=== PATIENT | female | born 1985 | race African-American/Black ===

== ENCOUNTER 2024-02-15 17:39 | Emergency (ER) | payer MEDICAID ==
[~2024-02-15] VITALS: Ht 152.4 cm; Wt 131.2 kg
[~2024-02-15 17:39] MED LIST: ALDACTONE 25MG25 M1 PO; CEFTIN 250250 MG/TAB PO; CEPHALEXIN500 M1 PO; COZAAR 25MG25 MG/TAB PO; DOXYCYCLINE 10100 MG PO; FLAGYL500 MG PO; JARDIANCE10 PO; K-DUR 10 MEQ T10 MEQ PO; LASIX 40MG TABL40 MG PO; MACROBID 1100 MG/CAP PO; MOTRIN 600600 MG/TAB PO; NO HOME MEDICATIONS; PERCOCET 325 MG1 TA2 PO; PREDNISONE50 MG PO; PRENATAL1 TA1; PROAIR HFA0.09 MG/AC IH; TOPROL XL 25MG25 MG PO; TRANDATE 100MG100 MG PO; TUMS500 MG; ULTRAM 50MG TAB50 MG PO
[2024-02-15 17:40] VITALS: TEMP 101
[2024-02-15] MEDS ORDERED: Albuterol/Ipratropium 3 MG-0.5 MG/3 ML Neb Soln IH ONE (17:45)
[2024-02-15 17:56] LABS: HEMATOCRIT 43.8 % (37.0-47.0); HEMOGLOBIN 14.4 g/dl (12.5-16.0); MEAN CELL VOLUME 96 fl (80.0-100.0); MEAN CORPUSCULAR HEMOGLOBIN 32 pg (27-31); MEAN CORPUSCULAR HGB CONC 33 g/dl (33.0-37.0); MEAN PLATELET VOLUME 12.7 fl (7.4-10.4); PLATELET COUNT 127 K/mm3 (130-400); RED BLOOD COUNT 4.57 M/mm3 (4.10-5.30); REDCELL DISTRIBUTION WIDTH-CV 13.3 % (11.5-14.5)
[2024-02-15] MEDS ORDERED: Acetaminophen 500 MG TAB PO ONE (18:00)
[2024-02-15] MEDS ORDERED: hydrALAZINE 20 MG/ML 1 ML VIAL IV ONE (18:00)
[2024-02-15 18:14] LABS: EOSINOPHIL 1 % (0-4); LYMPHOCYTE 6 % (20.0-51.0); NEUTROPHILS 88 % (42.0-75.2); TOXIC GRANULATION PRESENT
[2024-02-15 18:18] LABS: ALBUMIN 3.7 g/dL (3.5-5.0); BILIRUBIN,TOTAL 0.7 mg/dL (0.2-1.2); CALCIUM 8.9 mg/dL (8.4-10.2); CREATININE, serum 0.75 mg/dL (0.57-1.11); MAGNESIUM 1.6 mg/dL (1.6-2.6); POTASSIUM 4.1 mEq/L (3.5-4.5)
[2024-02-15 18:24] LABS: TROPONIN-I 0.023 ng/mL (0.00-0.033)
[2024-02-15] MEDS ORDERED: Furosemide 40 MG/4 ML VIAL IV ONE (18:30)
[2024-02-15 18:33] LABS: COLLECTION METHOD CLEAN CATCH
[2024-02-15 18:43] LABS: URINE APPEARANCE CLOUDY (CLEAR/HAZY); URINE BLOOD NEGATIVE (NEGATIVE); URINE COLOR YELLOW (YELLOW); URINE GLUCOSE NEGATIVE (NEGATIVE); URINE KETONE NEGATIVE (NEGATIVE); URINE NITRATE NEGATIVE (NEGATIVE); URINE PROTEIN(semi-quant) 1+ (NEGATIVE)
[2024-02-15] MEDS ORDERED: fentaNYL 50 MCG/ML 2 ML VIAL IV ONE (19:00)
[2024-02-15 19:13] VITALS: BP 178/146; PULSE 137
== END 2024-02-15 19:13 | disposition left against medical advice (07) ==
LOC: COL.ER 17:39
PROVIDERS: Emergency Medicine
DX: R06.03 Acute respiratory distress (principal); R50.9 Fever, unspecified; R00.0 Tachycardia, unspecified; M79.89 Other specified soft tissue disorders; F17.200 Nicotine dependence, unspecified, uncomplicated
CPT/HCPCS: J0360; J1940

== ENCOUNTER 2024-05-18 23:19 | Inpatient (IN) | payer MEDICAID ==
[~2024-05-18] VITALS: Ht 152.4 cm; Wt 134.7 kg
[2024-05-18] MEDS ORDERED: Morphine 4 MG/ML VIAL IV ONE (23:30)
[2024-05-18 23:40] LABS: HEMATOCRIT 40.3 % (37.0-47.0); HEMOGLOBIN 13.5 g/dl (12.5-16.0); MEAN CELL VOLUME 97 fl (80.0-100.0); MEAN CORPUSCULAR HEMOGLOBIN 32 pg (27-31); MEAN CORPUSCULAR HGB CONC 34 g/dl (33.0-37.0); PLATELET COUNT 131 K/mm3 (130-400); RED BLOOD COUNT 4.17 M/mm3 (4.10-5.30)
[2024-05-18] MEDS ORDERED: Furosemide 40 MG/4 ML VIAL IV ONE (23:45)
[2024-05-18 23:59] LABS: ALBUMIN 3.4 g/dL (3.5-5.0); BILIRUBIN,TOTAL 0.4 mg/dL (0.2-1.2); CALCIUM 8.8 mg/dL (8.4-10.2); CREATININE, serum 0.66 mg/dL (0.57-1.11); MAGNESIUM 1.7 mg/dL (1.6-2.6); POTASSIUM 3.7 mEq/L (3.5-4.5); TOTAL PROTEIN 6.9 g/dl (6.2-8.1)
[2024-05-19] VITALS (13 sets, daily range): BP systolic 136–191; BP diastolic 85–136; PULSE 85–123; TEMP 97.6–99.6
[2024-05-19 00:05] LABS: TROPONIN-I 0.03 ng/mL (0.00-0.033)
[2024-05-19 00:11] LABS: BAND 6 % (0-10); BASOPHIL 1 % (0-2); LYMPHOCYTE 13 % (20.0-51.0); NEUTROPHILS 76 % (42.0-75.2)
[2024-05-19 00:16] LABS: COLLECTION METHOD CLEAN CATCH
[2024-05-19 00:59] LABS: PH 7.5 (5.0-8.5); URINE APPEARANCE CLEAR (CLEAR/HAZY); URINE BLOOD TRACE (NEGATIVE); URINE COLOR YELLOW (YELLOW); URINE GLUCOSE NEGATIVE (NEGATIVE); URINE KETONE NEGATIVE (NEGATIVE); URINE NITRATE POSITIVE (NEGATIVE); URINE PROTEIN(semi-quant) NEGATIVE (NEGATIVE)
[2024-05-19] MEDS ORDERED: cefTRIAXone 2 G in Water For Injection,Sterile 20 ML IV ONE (01:30)
[2024-05-19] MEDS ORDERED: ZOLOFT 100MG100 MG PO (02:41)
[2024-05-19] MEDS ORDERED: SINEMET 10/101 UDTAB PO (02:42)
[2024-05-19] MEDS ORDERED: NORCO 325 MG-51 TAB PO (02:54)
[2024-05-19] MEDS ORDERED: COREG12.5 MG PO (02:55)
[2024-05-19] MEDS ORDERED: ABILIFY 10MG TA10 MG PO (02:55)
[2024-05-19] MEDS ORDERED: DESYREL 100MG100 MG PO (02:56)
[2024-05-19 03:05] LABS: ARTERIAL BLD GAS O2 SATURATION 98.2 % (92-100); ARTERIAL BLD GAS TCO2 CT 24.9; ARTERIAL BLOOD GAS BASE EXCESS -1.6 (-2-2); ARTERIAL BLOOD GAS HCO3 23.6 meq/L (22-26); ARTERIAL BLOOD GAS PCO2 41.6 mmHg (35-45); ARTERIAL BLOOD GAS PO2 114.1 mmHg (80-100); ARTERIAL BLOOD GAS pH 7.37 (7.35-7.45)
[2024-05-19] MEDS ORDERED: Metoprolol Tartrate 5 MG/5 ML VIAL IV ONE (04:15)
[2024-05-19] MEDS ORDERED: Iohexol 350 - 100 ML VIAL IV ONE (04:17)
--- NOTE | 2024-05-19 04:19 | NUR ---
Patient arrived to room 351 at this time. Patient's BP is 191/136 upon arrival. Hospitalist COLETTE Olsen had requested to be notified of BP upon arrival for prevoius BP of 186/92. Recieved orders to give 5mg IV metoprolol and apply 1in of nitro paste. Hospitalist kept update with blood pressuers. States she is starting to have some more chest pain. Assessment and med rec complete. IV in right AC flushes easily without complications. Oriented patient to room, call light, bathroom, and phone. Call light and personal items in reach. Bed in low position.
[2024-05-19] MEDS ORDERED: Nitroglycerin 2% Topical Oint 1 GM UD TD SCH (04:30)
--- NOTE | 2024-05-19 04:40 | NUR ---
RT IN TO ASSIST PT TO ROOM AND CT. PT ON 5L NC. WHEN PT ARRIVED TO ROOM PT PLACED BACK ON BIPAP.
[2024-05-19] MEDS ORDERED: Morphine 4 MG/ML VIAL IV ONE (04:45)
[2024-05-19] MEDS ORDERED: Albuterol/Ipratropium 3 MG-0.5 MG/3 ML Neb Soln IH PRN (05:00)
[2024-05-19] MEDS ORDERED: Azithromycin 500 MG in NS 250 ML IV SCH (05:00)
[2024-05-19] MEDS ORDERED: dexAMETHasone 10 MG/ML VIAL IV SCH (05:00)
[2024-05-19 05:44] LABS: PHOSPHOROUS 3.6 mg/dL (2.3-4.7)
[2024-05-19 05:46] LABS: CALCIUM 8.6 mg/dL (8.4-10.2); CREATININE, serum 0.7 mg/dL (0.57-1.11); POTASSIUM 3.7 mEq/L (3.5-4.5)
[2024-05-19 06:07] LABS: THYROID STIMULATING HORMONE 1.175 uIU/mL (0.350-4.940); TROPONIN-I 0.017 ng/mL (0.00-0.033)
[2024-05-19] MEDS ORDERED: Albuterol/Ipratropium 3 MG-0.5 MG/3 ML Neb Soln IH SCH (08:00)
[2024-05-19] MEDS ORDERED: Carvedilol 6.25 MG TAB PO SCH (08:00)
--- NOTE | 2024-05-19 08:30 | NUR ---
PATIENT ALERT AND ORIENTED X4. DENIES PAIN AT THIS TIME. PATIENT ON 5L 02/NC. TELEMETRY INPLACE. PATIENT HAS BILATERAL SWELLING, THE LEFT LEG MORE SWOLLEN THAN THE RIGHT. PATIENT LEFT AC D/C/I FLUSHING WELL. PATIENT SHIFT ASSESSMENT COMPLETED. CALL LIGHT WITHIN REACH. BED AT LOWEST POSITION.
[2024-05-19] MEDS ORDERED: Sertraline 100 MG TAB PO SCH (09:00)
[2024-05-19] MEDS ORDERED: ARIPiprazole 10 MG TAB PO SCH (09:00)
[2024-05-19] MEDS ORDERED: Furosemide 40 MG/4 ML VIAL IV SCH (09:00)
[2024-05-19] MEDS ORDERED: Acetaminophen 500 MG TAB PO PRN (11:30)
--- NOTE | 2024-05-19 12:44 | NUR ---
Data: Patient declined spiritual care visit offered during Manager Er rounds. The knock on the door had awakened when Manager Er knocked on the door. Manager Er apologized for waking Patient. Assessment: None. Patient declined. Plan of Care: Chaplains will remain available as needed/requested while Patient is admitted to this hospital.
--- NOTE | 2024-05-19 14:40 | NUR ---
PATIENT GALAN CATHETER LEAKING AND NO LONGER DRAINING PROPERLY. HOSPITALIST JONN WAS NOTIFIED.HOSPITALIST ORDER TO REMOVE GALAN CATHETER AND DISCONTINUE GALAN ORDER. PATIENT VOIDING IN HAT TO MONITOR I&O. CALL LIGHT WITHIN REACH. BED AT LOWEST POSITION.
[2024-05-19] MEDS ORDERED: traZODone 100 MG TAB PO SCH (21:00)
[2024-05-20] VITALS: BP_SYST 149
[2024-05-20] MEDS ORDERED: cefTRIAXone 2 G in Water For Injection,Sterile 20 ML IV SCH (02:00)
--- NOTE | 2024-05-20 02:49 | NUR ---
RT IN TO GIVE PT BREATHING TX. RN CALLED STATING PT WANTED A BREAK FROM THE BIPAP. TX GIVEN, PT STATING SHE DOES NOT WANT TO GO ON THE BIPAP RIGHT NOW. O2 REDUCED FROM 5L TO 4L VIA NC, PT SATTING 93%.
[2024-05-20 03:35] VITALS: BP 148/90; PULSE 84; TEMP 98.3
--- NOTE | 2024-05-20 05:42 | NUR ---
EKG PERFORMED. PT REFUSING BIPAP.
--- NOTE | 2024-05-20 07:50 | NUR ---
PATIENT ALERT AND ORIENTED X4. DENIES PAIN,REPORTS A HEADACHE OF 4/10. PATIENT ON 5L 02/. TELEMETRY INPLACE. PATIENT ON FLUID RESTRICTION. DENIES SOA AT THIS TIME OR CHEST PAIN. SHIFT ASSESSMENT COMPLETED. CALL LIGHT WITHIN REACH. BED AT LOWEST POSITION.
[2024-05-20 08:05] VITALS: BP 170/105; PULSE 89; TEMP 98.7
[2024-05-20 09:37] LABS: HEMATOCRIT 38.7 % (37.0-47.0); HEMOGLOBIN 13.4 g/dl (12.5-16.0); MEAN CELL VOLUME 95 fl (80.0-100.0); MEAN CORPUSCULAR HEMOGLOBIN 33 pg (27-31); MEAN CORPUSCULAR HGB CONC 35 g/dl (33.0-37.0); MEAN PLATELET VOLUME 12.5 fl (7.4-10.4); PLATELET COUNT 119 K/mm3 (130-400); RED BLOOD COUNT 4.06 M/mm3 (4.10-5.30)
[2024-05-20 09:57] LABS: CREATININE, serum 0.8 mg/dL (0.57-1.11); POTASSIUM 3.5 mEq/L (3.5-4.5)
[2024-05-20] MEDS ORDERED: PREDNISONE20 MG PO (09:59)
[2024-05-20] MEDS ORDERED: AMOXICILLIN 8751 TAB PO (10:01)
[2024-05-20] MEDS ORDERED: LASIX 40MG TABL40 MG PO (10:02)
--- NOTE | 2024-05-20 10:20 | NUR ---
PATIENT HAS DECIDED TO LEAVE AGAINST MEDICAL ADVICE. PATIENT RISK LEAVING THE HOSPITAL HAS BEEN EXPLAINED TO PATIENT BY DR. LUNSFORD AND BY THIS NURSE. PATIENT VERBALIZED BEING AWARE OF THE RISK OF HER CONDITION WORSENING AND NOT BEING ABLE TO LEAVE HOSPITAL WITH OXYGEN AND RISKS OF IT INCLUDING POTENTIAL . PATIENT VERBALIZED UNDERSTANDING AND CONTINUED WITH DECISION OF LEAVING AGAINST MEDICAL ADVICED. PATIENT SIGNED AMA FORM.
[2024-05-20 10:33] VITALS: BP_SYST 170
[2024-05-20 10:49] LABS: LYMPHOCYTE 4 % (20.0-51.0); NEUTROPHILS 94 % (42.0-75.2); PLATELET ESTIMATE NORMAL (NORMAL)
--- NOTE | 2024-05-20 10:50 | NUR ---
PATIENT DISCHARGE INSTRUCTIONS GIVEN. PATIENT WAS ESCORTED VIA PCT EDMUNDO TO [facility] AT EMERGENCY ENTRANCE. PATIENT IV AND TELE REMOVED.
--- NOTE | 2024-05-20 11:38 | NUR ---
MAR[facility] met with patient to complete intake. Patient provides she lives with spouse Willie Hernandez [phone] in [facility]. Patient provides she does utilize a walker, and home health services through [address] [place] [address], PCP is Dr. Holder and pharmacy is [facility]. DPOA appointed is spouse. Patient provides that she will be going back to her home upon discharge. SW informed that patient will be departing hospital AMA.
== END 2024-05-20 10:51 | disposition left against medical advice (07) | DRG 871 ==
LOC: COL.ER 23:19 → MEDICAL 05-19 01:47
PROVIDERS: Emergency Medicine; Nurse Practitioner Family; ADMIT Internal Medicine
PROC: 5A09357 Assistance with Respiratory Ventilation, Less than 24 Consecutive Hours, Continuous Positive Airway Pressure (ICD-10-PCS; principal; 2024-05-19)
DX: A41.9 Sepsis, unspecified organism (principal); I50.23 Acute on chronic systolic (congestive) heart failure; J18.8 Other pneumonia, unspecified organism; J96.01 Acute respiratory failure with hypoxia; Z68.43 Body mass index [BMI] 50.0-59.9, adult; J44.1 Chronic obstructive pulmonary disease with (acute) exacerbation; J44.0 Chronic obstructive pulmonary disease with (acute) lower respiratory infection; J45.901 Unspecified asthma with (acute) exacerbation; I11.0 Hypertensive heart disease with heart failure; F17.210 Nicotine dependence, cigarettes, uncomplicated; F10.20 Alcohol dependence, uncomplicated; Z20.822 Contact with and (suspected) exposure to COVID-19; E66.01 Morbid (severe) obesity due to excess calories; G25.81 Restless legs syndrome; I89.0 Lymphedema, not elsewhere classified; I16.0 Hypertensive urgency; Z88.2 Allergy status to sulfonamides; Z23 Encounter for immunization
CPT/HCPCS: A4314; J0456; J0696; J1100; J1650; J1940; J2270; J7050; Q9967